=== PATIENT | female | born 1990 ===

== ENCOUNTER 2022-07-04 03:53 | Inpatient (IN) | payer OTHER ==
[~2022-07-04] VITALS: Ht 170.2 cm; Wt 2.3 kg
[2022-07-04] MEDS ORDERED: PRENATAL + DHA1 EAC1 PO (05:40)
== END 2022-07-06 14:07 | disposition home or self-care (01) | DRG 788 ==
LOC: LDR 03:53 → OB/GYN 14:16
PROVIDERS: Obstetrics & Gynecology; ADMIT Obstetrics & Gynecology Maternal & Fetal Medicine; ATTEND Obstetrics & Gynecology Maternal & Fetal Medicine
PROC: 4A1HXCZ Monitoring of Products of Conception, Cardiac Rate, External Approach (ICD-10-PCS; 2022-07-04)
PROC: 10D00Z1 Extraction of Products of Conception, Low, Open Approach (ICD-10-PCS; principal; 2022-07-04 13:00)
DX: O36.8330 Maternal care for abnormalities of the fetal heart rate or rhythm, third trimester, not applicable or unspecified (principal); O42.02 Full-term premature rupture of membranes, onset of labor within 24 hours of rupture; O69.81X0 Labor and delivery complicated by cord around neck, without compression, not applicable or unspecified; Z3A.38 38 weeks gestation of pregnancy; Z37.0 Single live birth; Z20.822 Contact with and (suspected) exposure to COVID-19